=== PATIENT | female | born 1960 | race Hispanic/Latino ===

== ENCOUNTER 2025-01-25 12:04 | Emergency (ER) | payer OTHER ==
[~2025-01-25] VITALS: Ht 152.4 cm; Wt 59.9 kg
[2025-01-25 12:51] LABS: SARS-CoV-2, RNA, NAAT NEGATIVE SARS CoV-2 (NEGATIVE)
--- NOTE | 2025-01-25 13:01 | HMCIMG ---
Exam Type: CHEST 1VW Clinical Information: sob Comparison: None Findings: The lungs are clear of infiltrates. The heart is enlarged. Bony and soft tissue structures of the chest wall are unremarkable. IMPRESSION: Cardiomegaly. Clear lungs.
[2025-01-25 13:49] LABS: INFLUENZA TYPE A NEGATIVE FOR TYPE A (NEGATIVE); INFLUENZA TYPE B NEGATIVE FOR TYPE B (NEGATIVE)
[2025-01-25 13:50] LABS: RAPID GROUP A STREP NEGATIVE (NEGATIVE)
[2025-01-25] MEDS ORDERED: BENZ-39 PO (14:07)
[2025-01-25] MEDS ORDERED: METH4TAB3 PO (14:07)
[2025-01-25] MEDS: dexaMETHasone SOD PHOSPHATE 4 MG/ML 1ML VIAL IM ONE (14:08)
--- NOTE | 2025-01-25 14:08 | ERN ---
General Chief Complaint: Cough Stated Complaint: COUGH X WEEKS Time Seen by MD: 12:07 Time Seen by Midlevel: 12:07 Source: patient History of Present Illness Initial Comments Patient is a 64-year-old female presenting to the emergency department for evaluation of cough that has been ongoing for the last two weeks. Patient was already seen by her primary care doctor and started on azithromycin with little to no relief. Denies any fever, chills, or any other symptoms at this time. Allergies: Coded Allergies: No Known Allergies (Unverified Allergy, Unknown, 01/25/25) Home Meds Active Scripts Benzonatate (Tessalon Perles) 100 Mg Cap, 100 MG PO TID for cough for 10 Days, #30 CAP 0 Refills Prov:LINDA ROMAN 01/25/25 Methylprednisolone (Medrol) 4 Mg Tab.ds.pk, 1 TAB PO AD for 6 Days, #21 TAB 0 Refills 6 on day 1 then reduce by one tablet daily until gone Prov:LINDA ROMAN 01/25/25 Past Medical History Past Medical History: No Pertinent History Past Surgical History: ROS Dictation CONSTITUTIONAL: Negative except for HPI HEAD/FACE: Negative except for HPI EENT: Negative except for HPI RESPIRATORY: Negative except for HPI GASTROINTESTINAL/ABDOMINAL: Negative except for HPI GENITOURINARY: Negative except for HPI MUSCULOSKELETAL: Negative except for HPI INTEGUMENTARY: Negative except for HPI NEUROLOGICAL/PSYCH: Negative except for HPI HEMATOLOGIC/LYMPHATIC: Negative except for HPI All Systems Negative, Except as noted above. 13 point review of systems assessed and all negative except for above. Physical Exam Physical Exam Dictation Vital Signs reviewed General Appearance: Alert, oriented x 3, no acute distress, well developed, nourished. Head and Face: non-traumatic. Eyes: PERRL, pink conjunctivas, eyelid no trauma, anterior chamber with arcus senilis. Ears: Pinnas intact and no signs of trauma or erythema ear canals clear and no discharge TM no erythema Nose: No discharge, no bleeding. Oropharynx: Mouth normal, tongue pink, pharynx clear,no erythema, tonsils no exudates, no abscesses noted, mucous membrane moist Neck: Supple, non-tender, no thyromegaly, no masses, no JVD, no bruits Breast:Deferred Chest:No tenderness, no crepitus, no paradoxical movement, no retractions Lungs:Clear, well-ventilated, symmetric, no rales, no wheezing, no rhonchi, no stridor, good breath sounds bilaterally Heart: Regular rate, regular rhythm, no murmur, no gallops Vascular: no peripheral edema, Abdomen: Soft, positive bowel sounds, nondistended, no guarding, nontender, no rebound, no masses no hepatomegaly, no splenomegaly, no Baer's sign, no hernias. Rectal: Deferred Genital: Deferred Neurological: Normal speech, motor function intact, sensory function intact Musculoskeletal: Neck nontender, full range of motion, back nontender, full range of motion, Extremities: nontender, full range of motion Skin: Color pink, dry, no turgor, no rash, no lacerations, no abrasions, no contusions. Lymphatic: Deferred Results Laboratory and Microbiology Lab and Micro Result Laboratory Tests Test 01/25/25 12:23 Influenza Type A Antigen NEGATIVE FOR TYPE A Influenza Type B Antigen NEGATIVE FOR TYPE B SARS-CoV-2, RNA, NAAT NEGATIVE SARS CoV-2 Group A Streptococcus Rapid NEGATIVE (NEGATIVE) Labs Reviewed?: Yes MDM MDM: Patient is a 64-year-old female presenting to the emergency department for evaluation of cough that has been ongoing for the last two weeks. Patient was already seen by her primary care doctor and started on azithromycin with little to no relief. Denies any fever, chills, or any other symptoms at this time. On physical examination the patient is in no acute respiratory distress. Initial vital signs are stable. Patient is afebrile and nontoxic appearing. Respiratory swabs are negative. Chest x-ray does not show any evidence of pneumonia. Symptoms are most likely related to acute bronchitis. We will discharged home with supportive management. Return precautions discussed. Differential diagnosis: Bronchitis, pneumonia, viral illness There are no social concerns with this patient. Prescription drug management Prescriptions will include: Medrol pack, Tessalon Perles Medical management and examination interpretation discussions were had by me with other qualified healthcare professionals as indicated for the patient's care. ED Course Orders Procedure Category Date Status Time Covid Rna Naat LAB 01/25/25 Complete 12:09 Influenza Type A & B, LAB 01/25/25 Complete Rapid 12:09 Rapid (Group A Strep) LAB 01/25/25 Complete 12:09 Chest 1vw RAD 01/25/25 Resulted 12:09 Dexamethasone 4mg/Ml PHA 01/25/25 In Process 1ml Vial (Dexametha 14:30 Current Medications Medications (Trade) Dose Ordered Sig/Taylor Route PRN Reason Start Time Stop Time Status Last Admin Dose Admin Dexamethasone Sodium Phosphate (dexaMETHasone 4MG/ML 1ML VIAL) 4 mg ONCE ONCE IM 01/25/25 14:30 01/25/25 14:31 01/25/25 14:08 Vital Signs Date Time Temp Pulse Resp B/P (MAP) Pulse Ox O2 Delivery O2 Flow Rate FiO2 01/25/25 14:14 97.9 61 14 132/76 99 Room Air* 0 21 01/25/25 13:02 97.9 69 14 147/71 98 Room Air* 0 21 01/25/25 12:06 97.9 77 16 150/78 98 Room Air 0 DX & DISP Disposition: Discharge Departure Impression: Primary Impression: Acute bronchitis Condition: Stable Scripts Benzonatate (Tessalon Perles) 100 Mg Cap 100 MG PO TID for cough for 10 Days, #30 CAP 0 Refills Prov: LINDA ROMAN 01/25/25 Methylprednisolone (Medrol) 4 Mg Tab.ds.pk 1 TAB PO AD for 6 Days, #21 TAB 0 Refills 6 on day 1 then reduce by one tablet daily until gone Prov: LINDA ROMAN 01/25/25 Additional Instructions: Your chest x-ray does not show any evidence of pneumonia. X-ray findings are more consistent with acute bronchitis. You have tested negative for influenza a, influenza B, COVID-19, and strep. I have given you multiple prescriptions which should help improve your symptoms over the next couple of days. You need to follow up with your primary care doctor for outpatient evaluation. No need for any emergent intervention at this time. Referrals: KIM JULES (PCP) Time of Disposition: 14:06 I have reviewed the case, and I agree with, Diagnosis and Plan I performed the substantive portion of the visit. I have reviewed and personally made and approve the management plan that is documented in the note by myself or the JUNE. I acknowledge for responsibility for the patient's management plan. LINDA ROMAN Jan 25, 2025 14:07
[2025-01-25 14:14] VITALS: BP 132/76; PULSE 61; RESP 14; TEMP 97.9; O2SAT 99
== END 2025-01-25 14:17 | disposition home or self-care (01) ==
LOC: EDH 12:04
DX: J20.9 Acute bronchitis, unspecified (principal); Z20.822 Contact with and (suspected) exposure to COVID-19; Z79.899 Other long term (current) drug therapy; Z98.890 Other specified postprocedural states
CPT/HCPCS: 99284; 71045; 87635; 87880; 87804 ×2; 96372; J1100